=== PATIENT | female | born 1980 | race Hispanic/Latino ===

== ENCOUNTER 2021-05-12 16:56 | Emergency (ER) | payer BC, OTHER ==
[~2021-05-12] VITALS: Ht 170.2 cm; Wt 90.7 kg
[~2021-05-12 16:56] MED LIST: KEFLEX500 MG PO; NORCO 7.5-3251 EACH PO; TERBINAFINE HC250 MG PO
== END 2021-05-12 18:05 | disposition home or self-care (01) ==
LOC: FSED 17:01
DX: R07.9 Chest pain, unspecified (principal)
CPT/HCPCS: 80053; 82553; 84484; 85025; 93005; 99283